=== PATIENT | female | born 1995 | race African-American/Black ===

== ENCOUNTER 2022-02-05 08:00 | Inpatient (IN) | payer MEDICAID ==
[~2022-02-05] VITALS: Ht 162.6 cm; Wt 145.1 kg
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
[2022-02-05] MEDS ORDERED: IV NORMAL SALINE 500 ML BAG IV ONE (09:00)
[2022-02-05] MEDS ORDERED: MORPHINE SULFATE 4 MG/1 ML DISP.SYRIN IV ONE (09:00)
[2022-02-05] MEDS ORDERED: MORPHINE SULFATE 4 MG/1 ML DISP.SYRIN ONE (09:05)
--- NOTE | 2022-02-05 09:27 | NUR ---
Pt transported to [facility] for CT.
[2022-02-05 09:32] LABS: HEMATOCRIT 38.4 % (31.2-41.9); MEAN CORPUSCULAR VOLUME 91.9 fL (75.5-95.3); PLATELET COUNT (AUTO) 358 K/uL (179-408)
[2022-02-05 09:47] LABS: CREATININE 0.8 mg/dL (0.6-1.3); POTASSIUM 4.3 mmol/L (3.5-5.1)
[2022-02-05 09:52] LABS: BILIRUBIN,TOTAL 0.3 mg/dL (0.2-1.0); TOTAL PROTEIN, SERUM 7.5 g/dL (6.4-8.2)
[2022-02-05] MEDS ORDERED: ONDANSETRON 4 MG/2 ML VIAL ONE ×2 (10:06→12:50)
[2022-02-05] MEDS ORDERED: HYDROMORPHONE 1 MG/1 ML DISP.SYRIN ONE (10:07)
[2022-02-05] MEDS ORDERED: HYDROMORPHONE 1 MG/1 ML DISP.SYRIN IV ONE (10:15)
[2022-02-05] MEDS ORDERED: ONDANSETRON 4 MG/2 ML VIAL IV ONE ×2 (10:15→12:45)
[2022-02-05] MEDS ORDERED: PROPOFOL 200 MG/20 ML BOTTLE IV ONE ×2 (11:00→12:15)
[2022-02-05] MEDS ORDERED: PROPOFOL 200 MG/20 ML BOTTLE ONE ×2 (11:10→11:50)
--- NOTE | 2022-02-05 11:30 | NUR ---
Moderate sedation and reduction procedure's risks and benefits were was explained by , pt consented and signed the consent form.
--- NOTE | 2022-02-05 12:30 | NUR ---
Moderated sedation and reduction of the LLE was started @1145 and done by MD @1200, charge nurse and RT were present. Pt stable, alert and awake at 1200. BP 131/66, NE 115, RR 22, O2 sat 100%. Positive CMS on the LLE.
[2022-02-05] MEDS ORDERED: ONDANSETRON 4 MG/2 ML VIAL IV PRN (12:45)
[2022-02-05] MEDS ORDERED: FENTANYL CITRATE 100 MCG/2 ML AMPUL IV ONE (12:45)
[2022-02-05] MEDS ORDERED: REMEDY ESSENTIAL ZINC PASTE 113 GM TP PRN (12:45)
[2022-02-05] MEDS ORDERED: ACETAMINOPHEN 325 MG TABLET PO PRN (12:45)
[2022-02-05] MEDS ORDERED: MAGNESIUM HYDROXIDE 30 ML LIQUID UDC PO PRN (12:45)
[2022-02-05] MEDS ORDERED: MORPHINE SULFATE 2 MG/1 ML DISP.SYRIN IV PRN (12:45)
[2022-02-05] MEDS ORDERED: FENTANYL CITRATE 100 MCG/2 ML AMPUL ONE (12:50)
[2022-02-05] MEDS ORDERED: PIOGLITAZONE HCL 15 MG TABLET PO ONE (13:15)
[2022-02-05] MEDS ORDERED: PIOGLITAZONE HCL 15 MG TABLET PO SCH (13:15)
[2022-02-05] MEDS ORDERED: METFORMIN HCL 500 MG TABLET PO ONE (13:15)
[2022-02-05] MEDS ORDERED: METFORMIN HCL 500 MG TABLET ONE (13:35)
--- NOTE | 2022-02-05 14:15 | NUR ---
Report given to [place] RN, pt will be admitted under the care of Dr. Scott, Rm 325 M/S.
--- NOTE | 2022-02-05 15:15 | NUR ---
Pt's belongings were collected and brought with the patient during transportation to [facility].
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
--- NOTE | 2022-02-05 19:23 | NUR ---
Pt. refused to turn and during skin assessment due to complaining of pain. Unable to assess the back skin condition.
[2022-02-05 20:00] VITALS: BP 146/78
[2022-02-05] MEDS ORDERED: MORPHINE SULFATE 4 MG/1 ML DISP.SYRIN IV PRN (20:45)
[2022-02-06] MEDS: HYDROMORPHONE 1 MG/1 ML DISP.SYRIN IV PRN ×2 (00:29→04:28)
[2022-02-06 04:35] VITALS: BP 139/70
--- NOTE | 2022-02-06 05:05 | NUR ---
Shift Note: RECEIVED REPORT FROM EVENING NURSE PASTORA PT IS ALERT AND ORIENTED X4 POT C/O PAIN STATES" THE MORPHINE ISN'T WORKING. CALLED DR. SILVA HE ORDERED 0.5MG OF DILAUDID MEDICATION GIVEN TO PAY STATES" i CAN HANDLE THIS IT LAST LONGER. PT SIGNED CONSENT FOR SURGERY THIS AM. PT IS HAS A IV RAC 20G NO SIGNS OF INFILTRATION AND PT HAS BEEN NPO SINCE 2300. PT GIVEN LAST DOSE AT 0427 REASSESSED PT STATES" I HAVE NO MORE PAIN. WILL ENDORSE TO AM NURSE.PT IS ABLE TO WIGGLE FINGERS AND TOES. WILL CONTINUE TO MONITOR FOR FALL AND SAFETY.
--- NOTE | 2022-02-06 05:58 | NUR ---
PT PREOP CHECKLIST COMPLETED FOR SURGERY BY PREOP NURSE SOL.WILL ENDORSE TO AM NURSE.
[2022-02-06 06:24] LABS: MEAN CORPUSCULAR HEMOGLOBIN 30.9 uug (24.7-32.8); MEAN CORPUSCULAR VOLUME 90.6 fL (75.5-95.3); PLATELET COUNT (AUTO) 331 K/uL (179-408)
[2022-02-06] MEDS ORDERED: VANCOMYCIN 1000 MG VIAL ONE (06:26)
[2022-02-06] MEDS ORDERED: HYDROMORPHONE 2 MG/1 ML DISP.SYRIN ONE (06:38)
[2022-02-06] MEDS ORDERED: FENTANYL CITRATE 100 MCG/2 ML AMPUL ONE (06:38)
[2022-02-06] MEDS ORDERED: ROCURONIUM BROMIDE 50 MG/5 ML VIAL ONE (06:39)
[2022-02-06] MEDS ORDERED: FAMOTIDINE. 20 MG/2 ML VIAL IV ONE (06:39)
[2022-02-06] MEDS ORDERED: MIDAZOLAM HCL 2 MG/2 ML VIAL ONE (06:39)
[2022-02-06 06:52] LABS: CREATININE 0.8 mg/dL (0.6-1.3); MAGNESIUM 1.7 mg/dL (1.8-2.4); PHOSPHOROUS 4.5 mg/dL (2.5-4.9); POTASSIUM 4.3 mmol/L (3.5-5.1)
[2022-02-06 07:11] LABS: *BILIRUBIN,URIN NEGATIVE (NEGATIVE); *BLOOD, URINE 3+ (NEGATIVE); *CLARITY,URINE SLIGHTLY CLOUDY (CLEAR); *COLOR,URINE AMBER (YELLOW); *KETONES,URINE TRACE (NEGATIVE); *UROBILINOGEN,URINE 0.2 E.U./dl (NORMAL); LEUKOCYTE ESTERASE ,URINE NEGATIVE (NEGATIVE); NITRITE, URINE NEGATIVE (NEGATIVE); PH,URINE 5.5 (5.0-8.0); UGLUCOSE NEGATIVE (NEGATIVE)
[2022-02-06 07:45] LABS: *URINE HCG, QUAL NEG (NEGATIVE)
--- NOTE | 2022-02-06 07:57 | NUR ---
Received report from assembler 1st shift, pt has been taken for procedure by Dr. Dangelo.
[2022-02-06] MEDS ORDERED: IV D5W-0.45% NS +20 KCL 1,000 ML IV PRN (11:15)
--- NOTE | 2022-02-06 11:30 | NUR ---
pt returned back to room from OR. Closed reduction of left wrist and ORIF of left ankle done by Dr. Dangelo. Orders are entered, Non weight-baring status per MD. Family at bedside at this time, requesting to speak with SW. Will continue to monitor.
[2022-02-06 12:14] VITALS: BP 150/96
[2022-02-06 12:49] LABS: BACTERIA,URINE MODERATE /HPF (NONE SEEN); CALCIUM OXALATE CRYSTALS,UR RARE /HPF (NONE SEEN); SQUAMOUS EPITHELIAL CELL,UR MODERATE /HPF (NONE SEEN); URINE AMORPHOUS URATE MODERATE /HPF; WBC,URINE NONE SEEN /HPF (0-3)
[2022-02-06 12:51] LABS: RBC,URINE 50-80 /HPF (0-3)
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
[2022-02-06] MEDS ORDERED: ONDANSETRON 4 MG/2 ML VIAL IV ONE (13:01)
[2022-02-06] MEDS ORDERED: GLYCOPYRROLATE 0.2 MG/ML VIAL IJ ONE (13:01)
[2022-02-06] MEDS ORDERED: SEVOFLURANE 250 ML BOTTLE IH ONE (13:01)
[2022-02-06] MEDS ORDERED: CEFAZOLIN 1 G VIAL IM ONE (13:01)
[2022-02-06] MEDS ORDERED: PROPOFOL 200 MG/20 ML BOTTLE IV ONE (13:01)
[2022-02-06] MEDS ORDERED: NEOSTIGMINE METHYLSULFATE 10 MG/10 ML VIAL IM ONE (13:01)
[2022-02-06] MEDS ORDERED: LIDOCAINE-MPF 2% 5 ML VIAL IJ ONE (13:01)
[2022-02-06] MEDS ORDERED: METOCLOPRAMIDE HCL 10 MG/2 ML VIAL IV ONE (13:01)
[2022-02-06] MEDS ORDERED: KETOROLAC TROMETHAMINE 30 MG INJ IM ONE (13:01)
[2022-02-06] MEDS: MORPHINE SULFATE 4 MG/1 ML DISP.SYRIN IV PRN ×3 (13:30→20:16)
[2022-02-06] MEDS: MAGNESIUM SULFATE/D5W 100 ML IV SCH ×2 (13:30→14:54)
[2022-02-06] MEDS ORDERED: METF-440 PO (13:49)
[2022-02-06] MEDS ORDERED: PIOG30TA10 PO (13:49)
--- NOTE | 2022-02-06 13:58 | NUR ---
Pt is a/o x 4, mom at bedside at this time, administered morphine as ordered by MD for pain on left foot. Fluids running, tolerated PO diet well, no complaints of nausea. Will heplock fluids per MD order after meals as tolerated.
[2022-02-06] MEDS: CEFAZOLIN 1 G in IV DEXTROSE 5% 50 ML IV SCH (15:58)
[2022-02-06 16:00] VITALS: BP 140/80
[2022-02-06 20:00] VITALS: BP 144/86
[2022-02-06] MEDS: HYDROCODONE/APAP 10-325 MG TABLET PO PRN (21:30)
[2022-02-06] MEDS ORDERED: HYDROMORPHONE 1 MG/1 ML DISP.SYRIN IV ONE (23:00)
[2022-02-07] VITALS (7 sets, daily range): BP systolic 130–150; BP diastolic 53–79
[2022-02-07] MEDS: CEFAZOLIN 1 G in IV DEXTROSE 5% 50 ML IV SCH (00:30)
[2022-02-07] MEDS ORDERED: HYDROMORPHONE 1 MG/1 ML DISP.SYRIN IV ONE (01:30)
--- NOTE | 2022-02-07 02:49 | NUR ---
PATIENT HAD ORDER FOR DILAUDID AND CALLED [facility] MEDICATION WASN'T IN THE [facility] PHARMACIST SAID TO STOP THE ORDER REORDER DILAUDID 1 MG IV ONE TIME DOSE. REORDERED MEDICATION AND PT WAS GIVEN DILAUDID 1MG IV RECHECKED PT IS SLEEPING. NO SIGNS OF DISTRESS NOTED. WILL CONTINUE TO MONITOR FOR FALL AND SAFETY
[2022-02-07] MEDS: HYDROCODONE/APAP 10-325 MG TABLET PO PRN ×3 (03:02→18:12)
[2022-02-07 07:13] LABS: CREATININE 0.9 mg/dL (0.6-1.3); MAGNESIUM 1.8 mg/dL (1.8-2.4); POTASSIUM 4.3 mmol/L (3.5-5.1)
[2022-02-07 07:27] LABS: HEMATOCRIT 32.1 % (31.2-41.9); MEAN CORPUSCULAR HEMOGLOBIN 31.5 uug (24.7-32.8); MEAN CORPUSCULAR VOLUME 91.3 fL (75.5-95.3); PLATELET COUNT (AUTO) 321 K/uL (179-408)
[2022-02-07] MEDS ORDERED: DEXTROSE 50% 50 ML DISP.SYRIN IV PRN (07:45)
[2022-02-07] MEDS: HYDROMORPHONE 1 MG/1 ML DISP.SYRIN IV PRN ×4 (08:00→21:47)
[2022-02-07 08:33] LABS: NEUTROPHILS % (MANUAL) 0 % (42-75)
--- NOTE | 2022-02-07 08:50 | NUR ---
SHIFT NOTE: RECEIVED PT ALERT AND ORIENTED X4 PT S/P LT ORIF OF DISTAL FIBULA AND ORIF OF DISTAL RADIUS. BOTH WRIST AND ANKLE HAS CAST. PT HAS POSITIVE CMS TOE AND HAND COLOR WNL . PT WAS CRYING MORPHINE WASN'T WORKING TEXT ANESTHETIC ASSISTANT GIVE PT STRONGER MEDICATION. ORDERED DILAUDID 1 MG IVP X1. ENDORSED TO AM NURSE ABOUT DIABETIC MEDICATION AND STRONGER PAIN MEDICATION. NO ADVERSE REACTION FROM MEDICATION.
[2022-02-07] MEDS: BLOOD SUGAR DIAGNOSTIC 1 EACH STRIP VI SCH ×3 (11:48→21:00)
[2022-02-07] MEDS: INSULIN REGULAR, HUMAN 300 UNIT/3 ML VIAL SQ PRN ×2 (12:09→16:43)
[2022-02-07] MEDS: INSULIN REGULAR, HUMAN 300 UNITS/3 ML VIAL SQ PRN (22:06)
[2022-02-08] MEDS: HYDROMORPHONE 1 MG/1 ML DISP.SYRIN IV PRN ×5 (02:34→20:34)
[2022-02-08 04:00] VITALS: BP 144/62
--- NOTE | 2022-02-08 07:23 | NUR ---
RECEIVED PT ALERT AND ORIENTED X4 PT HAS LT ARM AND ANKLE FX POSITIVE CMS ABLE TO WIGGLE TOES AND ALSO SIN WARM TO TOUCH COLOR IS WNL. PT BLOOD SUGAR AT HS 213 AND AM BLOOD SUGAR IS 230 NO SIGNS OF DIABETIC REACTION NOTED WILL ENDORSE TO AM NURSE AND MEDICATION GIVEN ORDERED NO SIGNS OF ADVERSE REACTION NOTED. PT WAS GIVEN PAIN MEDICATION TWICE DURING THE SHIFT.
[2022-02-08] MEDS: BLOOD SUGAR DIAGNOSTIC 1 EACH STRIP VI SCH ×4 (07:33→21:32)
[2022-02-08] MEDS: INSULIN REGULAR, HUMAN 300 UNIT/3 ML VIAL SQ PRN ×4 (07:35→21:40)
[2022-02-08 11:17] VITALS: BP 140/71
[2022-02-08] MEDS: HYDROCODONE/APAP 10-325 MG TABLET PO PRN (11:53)
[2022-02-08 15:06] VITALS: BP 150/70
[2022-02-08 20:00] VITALS: BP 123/70
[2022-02-09] MEDS: HYDROMORPHONE 1 MG/1 ML DISP.SYRIN IV PRN ×3 (00:48→09:50)
[2022-02-09 04:00] VITALS: BP 115/64
[2022-02-09] MEDS: HYDROCODONE/APAP 10-325 MG TABLET PO PRN ×4 (04:44→20:13)
--- NOTE | 2022-02-09 06:38 | NUR ---
Medicated for pain prn .Pt having a period. Casts to lue and lle intact Cms checks wnl LLE elevated on pillows.
[2022-02-09] MEDS: INSULIN REGULAR, HUMAN 300 UNIT/3 ML VIAL SQ PRN ×4 (07:22→20:15)
[2022-02-09] MEDS: BLOOD SUGAR DIAGNOSTIC 1 EACH STRIP VI SCH ×4 (07:22→20:16)
[2022-02-09] MEDS: GLUCERNA SHAKE 237 ML CAN PO SCH (08:05)
[2022-02-09] MEDS ORDERED: HYDROCODONE/APAP 5-325MG TABLET PO PRN (11:30)
[2022-02-09 11:54] VITALS: BP 125/60
[2022-02-09 16:33] VITALS: BP 121/62
[2022-02-09 20:00] VITALS: BP 130/73
[2022-02-09] MEDS: BACLOFEN 10 MG TABLET PO SCH (20:13)
[2022-02-09] MEDS ORDERED: BACLOFEN 10 MG TABLET PO SCH (21:00)
[2022-02-10 04:00] VITALS: BP 143/40
[2022-02-10] MEDS: HYDROCODONE/APAP 10-325 MG TABLET PO PRN ×4 (05:20→20:32)
[2022-02-10] MEDS: BLOOD SUGAR DIAGNOSTIC 1 EACH STRIP VI SCH ×4 (06:33→20:01)
[2022-02-10] MEDS: INSULIN REGULAR, HUMAN 300 UNIT/3 ML VIAL SQ PRN ×4 (07:36→20:38)
[2022-02-10] MEDS: GLUCERNA SHAKE 237 ML CAN PO SCH (08:18)
[2022-02-10] MEDS: BACLOFEN 10 MG TABLET PO SCH ×2 (08:18→20:30)
[2022-02-10 11:38] VITALS: BP 122/80
[2022-02-10 16:00] VITALS: BP 132/85
--- NOTE | 2022-02-10 19:41 | NUR ---
Patient received in bed and Alert /Oriented X4, S/P ORIF fo Left distal fibula / ORIF of distal radius and short arm cast and short ankle has cast. Positive CMS toe and normal color, call light with in easy reach.
[2022-02-10 20:00] VITALS: BP 107/89
[2022-02-11] MEDS: HYDROCODONE/APAP 10-325 MG TABLET PO PRN ×4 (03:12→21:48)
[2022-02-11 04:00] VITALS: BP 110/72
[2022-02-11] MEDS: BLOOD SUGAR DIAGNOSTIC 1 EACH STRIP VI SCH ×4 (06:07→20:59)
[2022-02-11] MEDS: INSULIN REGULAR, HUMAN 300 UNIT/3 ML VIAL SQ PRN ×4 (06:17→16:06)
[2022-02-11] MEDS: BACLOFEN 10 MG TABLET PO SCH ×2 (08:16→20:59)
[2022-02-11] MEDS: GLUCERNA SHAKE 237 ML CAN PO SCH (08:16)
[2022-02-11 12:21] VITALS: BP 157/85
[2022-02-11 16:00] VITALS: BP 150/84
[2022-02-11 20:00] VITALS: BP 130/85
[2022-02-11] MEDS: INSULIN REGULAR, HUMAN 300 UNITS/3 ML VIAL SQ PRN (21:02)
[2022-02-12 04:00] VITALS: BP 130/75
[2022-02-12] MEDS: HYDROCODONE/APAP 10-325 MG TABLET PO PRN (04:59)
[2022-02-12] MEDS: BLOOD SUGAR DIAGNOSTIC 1 EACH STRIP VI SCH ×3 (06:20→16:41)
[2022-02-12] MEDS: INSULIN REGULAR, HUMAN 300 UNIT/3 ML VIAL SQ PRN ×3 (07:34→16:44)
[2022-02-12] MEDS: BACLOFEN 10 MG TABLET PO SCH (08:04)
[2022-02-12] MEDS: GLUCERNA SHAKE 237 ML CAN PO SCH (08:04)
[2022-02-12 09:27] LABS: MEAN CORPUSCULAR HEMOGLOBIN 30.8 uug (24.7-32.8); MEAN CORPUSCULAR VOLUME 91.1 fL (75.5-95.3); PLATELET COUNT (AUTO) 382 K/uL (179-408)
[2022-02-12 09:54] LABS: BILIRUBIN,TOTAL 0.4 mg/dL (0.2-1.0); CREATININE 0.9 mg/dL (0.6-1.3); MAGNESIUM 1.7 mg/dL (1.8-2.4); PHOSPHOROUS 4.4 mg/dL (2.5-4.9); POTASSIUM 4.2 mmol/L (3.5-5.1); TOTAL PROTEIN, SERUM 7.7 g/dL (6.4-8.2)
[2022-02-12] MEDS ORDERED: HYDROCODONE/APAP 10-325 MG TABLET PO PRN (10:30)
[2022-02-12] MEDS ORDERED: HYDROCODONE/APAP 5-325MG TABLET PO PRN (10:30)
[2022-02-12] MEDS ORDERED: BACL10TA PO (16:12)
[2022-02-12] MEDS ORDERED: HYDR-3980 PO (16:12)
[2022-02-12 16:45] VITALS: BP 104/87
--- NOTE | 2022-02-12 18:12 | NUR ---
PT. is alert and oriented x4. noted to be stable during the shift and no acte distress noted. able to make the need known. X-ray done for left ankle and C-T of the head done. all need attended and met. compliance with the care given.
--- NOTE | 2022-02-12 19:49 | NUR ---
Pt. is discharging home and family member will pick her up. All documents signed. Noted to be stable upon the discharge.
== END 2022-02-12 23:50 | disposition home health service (06) | DRG 313 ==
LOC: ER 08:00 → MEDSURG3 14:53
PROVIDERS: ADMIT Internal Medicine; ATTEND Internal Medicine
PROC: 0QSKXZZ Reposition Left Fibula, External Approach (ICD-10-PCS; principal; 2022-02-05)
PROC: 0QSH04Z Reposition Left Tibia with Internal Fixation Device, Open Approach (ICD-10-PCS; 2022-02-06)
PROC: 0QSK04Z Reposition Left Fibula with Internal Fixation Device, Open Approach (ICD-10-PCS; 2022-02-06)
PROC: 0PSJXZZ Reposition Left Radius, External Approach (ICD-10-PCS; 2022-02-06)
PROC: 05H533Z Insertion of Infusion Device into Right Subclavian Vein, Percutaneous Approach (ICD-10-PCS; 2022-02-07)
PROC: B546ZZA Ultrasonography of Right Subclavian Vein, Guidance (ICD-10-PCS; 2022-02-07)
DX: S82.842A Displaced bimalleolar fracture of left lower leg, initial encounter for closed fracture (principal); D68.59 Other primary thrombophilia; E44.0 Moderate protein-calorie malnutrition; S06.350A Traumatic hemorrhage of left cerebrum without loss of consciousness, initial encounter; Z68.43 Body mass index [BMI] 50.0-59.9, adult; E11.65 Type 2 diabetes mellitus with hyperglycemia; E66.01 Morbid (severe) obesity due to excess calories; E83.42 Hypomagnesemia; S52.592A Other fractures of lower end of left radius, initial encounter for closed fracture; Y93.9 Activity, unspecified; R40.2362 Coma scale, best motor response, obeys commands, at arrival to emergency department; R40.2142 Coma scale, eyes open, spontaneous, at arrival to emergency department; R40.2252 Coma scale, best verbal response, oriented, at arrival to emergency department; Z74.09 Other reduced mobility; Z20.822 Contact with and (suspected) exposure to COVID-19; V47.5XXA Car driver injured in collision with fixed or stationary object in traffic accident, initial encounter; Y92.410 Unspecified street and highway as the place of occurrence of the external cause
CPT/HCPCS: 36415; 70030-TC; 70450; 70486; 71045; 73100; 73110; 73610; 83735; 84100; 84703; 85025; 85730; 86900; 86901; 87086; 97161; A4649; A4663; C1713; G0378; G0500; J0690; J1170; J1815; J1885; J2250; J2270; J2405; J2765; J3010; J3370; J3475; J3490; J7040